=== PATIENT | female | born 1975 | race Two or more races ===

== ENCOUNTER 2023-04-12 16:53 | Emergency (ER) | payer BC ==
[~2023-04-12] VITALS: Ht 160 cm; Wt 83.9 kg
== END 2023-04-12 19:37 | disposition home or self-care (01) ==
LOC: ER 16:53
DX: S09.90XA Unspecified injury of head, initial encounter (principal); W19.XXXA Unspecified fall, initial encounter; Y93.E1 Activity, personal bathing and showering; Y92.9 Unspecified place or not applicable; Y99.9 Unspecified external cause status